=== PATIENT | male | born 1970 | race Two or more races ===

== ENCOUNTER 2025-02-22 12:05 | Day surgery (SDC) | payer MEDICAID, SELFPAY ==
[2025-02-21 14:22] VITALS: BMI 29.9
[2025-02-22] VITALS (9 sets, daily range): BP systolic 109–127; BP diastolic 69–89; PULSE 60–78; RESP 13–18; TEMP 36.3–36.8; O2SAT 95–100; BMI 29.2
[2025-02-22] MEDS: MIDAZOLAM INJ 1 MG/ML VIAL 2 ML (ASD USE ONLY) 2 MG IVP (14:00)
[2025-02-22] MEDS: RINGERS LACTATED 500 ML 500 ML 100 ML IV (14:00)
[2025-02-22] MEDS: fentaNYL CIT INJ 50 mCg/ML AMP 2ML (ASD USE ONLY) IVP (14:00)
== END 2025-02-22 14:58 | disposition home or self-care (01) ==
PROVIDERS: PCP Physician Assistant; Referring Provider Surgery; Visit Provider Surgery
PROC: 0DBE8ZX Excision of Large Intestine, Via Natural or Artificial Opening Endoscopic, Diagnostic (ICD-10-PCS; CPT 45380; principal; 2025-02-22 13:45)
DX: Z12.11 Encounter for screening for malignant neoplasm of colon (principal)
CPT/HCPCS: 45378; A4217; A4649; J2250; J3010; J7120